=== PATIENT | male | born 1980 | race Hispanic/Latino ===

== ENCOUNTER 2019-04-08 11:05 | Observation (INO) | payer OTHER ==
--- NOTE | 2019-04-08 11:26 | Emergency Department Report ---
Chief Complaint: Skin Rash Stated Complaint: BOIL BETWEEN LEGS - HPI History of Present Illness: 38yo WM states that he has a painful skin boil with swelling and bleeding x 6 days. - Exam Vital Signs: Vital Signs 04/08/19 11:11 Temperature 98.3 F Pulse Rate 135 H Respiratory 18 Rate Blood Pressure 188/112 O2 Sat by Pulse 96 Oximetry MSE screening note: Focused history and physical exam performed. Due to findings the following was ordered: ED Disposition for MSE Condition: Stable
[2019-04-08] MEDS ORDERED: SODIUM CHLORIDE 0.9% 1000 ML 1,000 ML IV ONE ×2 (11:50→17:27)
[2019-04-08] MEDS ORDERED: KETOROLAC 30 MG/1 ML INJ IV ONE (11:50)
[2019-04-08] MEDS ORDERED: MORPHINE 4 MG/1 ML INJ IV ONE (11:50)
[2019-04-08] MEDS ORDERED: VANCOMYCIN PHARMACY TO DOSE IV SCH (12:00)
[2019-04-08 12:24] LABS: Basophils # (Auto) 0.1 K/mm3 (0.0-0.1); Basophils % (Auto) 0.8 % (0.0-1.8); Eosinophils # (Auto) 0.1 K/mm3 (0.0-0.4); Eosinophils % (Auto) 0.9 % (0.0-4.3); Lymphocytes # (Auto) 1.8 K/mm3 (1.2-5.4); Lymphocytes % (Auto) 17.2 % (13.4-35.0); Mean Corpuscular HGB Conc 36 % (32-34); Mean Corpuscular Volume 92 fl (84-94); Monocytes # (Auto) 0.9 K/mm3 (0.0-0.8); Monocytes % (Auto) 8.5 % (0.0-7.3); Platelet Count 254 K/mm3 (140-440); Red Blood Count 4.67 M/mm3 (3.65-5.03); Red Cell Distribution Width 13.1 % (13.2-15.2)
[2019-04-08 12:27] LABS: Hemoglobin 15.3 gm/dl (11.8-15.2)
[2019-04-08 12:50] LABS: Bacteria,Urine 1+ /HPF (Negative); Bilirubin,Urine NEG (Negative); Blood,Urine NEG (Negative); Color,Urine Yellow (Yellow); Mucus,Urine FEW /HPF; Urobilinogen,Urine < 2.0 mg/dL (<2.0)
[2019-04-08 12:50] LABS: Alanine Aminotransferase 19 units/L (7-56); Albumin 3.8 g/dL (3.9-5); BUN/Creatinine Ratio 13; Blood Urea Nitrogen 8 mg/dL (9-20); Calcium 9.1 mg/dL (8.4-10.2); Hemolysis Index 1
[2019-04-08] MEDS ORDERED: VANCOMYCIN 2,000 MG in SODIUM CHLORIDE 0.9% 500 ML 500 ML IV ONE (13:00)
--- NOTE | 2019-04-08 15:07 | Cat Scan Report ---
CT abdomen and pelvis with contrast INDICATION / CLINICAL INFORMATION: large abscess in perineum. Patient states cut by a chair last week , became hard, now draining since Thursday. TECHNIQUE: Abdomen and pelvis CT performed following IV contrast only. Axial, sagittal and coronal CT reconstructions obtained. All CT scans at this location are performed using CT dose reduction for AL LAURIE by means of automated exposure control. COMPARISON: None available. FINDINGS: LUNG BASES: No significant abnormality. ABDOMEN: Mild diffuse fatty hepatic infiltration. Right hepatic lobe 20.7 cm in midclavicular length. Splenic length 14.6 cm. Otherwise grossly unremarkable liver, spleen, gallbladder, pancreas, adrenal s, aorta, IVC and kidneys. No ascites or size significant adenopathy with few small, subcentimeter me senteric and retroperitoneal lymph nodes. Nonopacified GI tract evaluation limited, though grossly no nobstructive. Normal appendix. No significant colonic stool burden. PELVIS: Slight seminal vesicle calcifications. Grossly unremarkable prostate and nonopacified rectosi gmoid and the urinary bladder. No free fluid or size significant adenopathy. Few bilateral inguinal l ymph nodes as measuring up to 2.4 x 1.4 cm on the right. Fat-containing bilateral inguinal hernias di ameters approximately 2.5-3 cm as on axial image 685, series 3, amongst others. Subtle stranding/lupis ration about the left inguinal skin fold incidentally noted as on axial image 692. Lower gluteal soft tissues also demonstrate moderate superficial induration/skin thickening, greatest about the midline posteriorly and left more than right with some inflammatory stranding also extending into the perine um as on axial images [id number]. No radiopaque foreign body identified in the areas seen. Mild degenerative spurring at few spinal levels. Mild bilateral hip degenerative changes/acetabular p rominence/spurring as well, left greater than right. Bilateral L5 pars defects incidentally noted. IMPRESSION: 1. Lower gluteal superficial induration/cellulitis incompletely imaged, as detailed above. 2. Smaller similar process at the left groin also suspected without deeper fluid collection or absces s. 3. No other acute CT abnormality with various other incidental findings, including fatty enlarged royal er, mild splenomegaly and bilateral L5 pars defects, amongst others, as above. Thank you for the opportunity to participate in this patient's care. Signer Name: Bella Coe Signed: 04/08/2019 3:03 PM Workstation Name: [id number]
--- NOTE | 2019-04-08 16:53 | Cat Scan Report ---
CT pelvis wo con INDICATION: perinium swelling (extend down though mid thigh). TECHNIQUE: All CT scans at this location are performed using the following dose modulation technique: Automated exposure control. CONTRAST: None. COMPARISON: CT abdomen and pelvis earlier the same day. FINDINGS: Prominent soft tissue inflammation with associated skin thickening is seen at the posterior and inferior gluteal region left greater than right extension into the perineum. No localized fluid collection or soft tissue gas is present. More localized similar findings are seen at the left groin anteriorly. IMPRESSION: Soft tissue thickening/inflammation greatest at the left gluteal region. No fluid collect ion identified. Signer Name: Sanket Romo MD Signed: 04/08/2019 4:48 PM Workstation Name: [id number]
--- NOTE | 2019-04-08 17:29 | Emergency Department Report ---
ED General Adult HPI - General Chief complaint: Skin Rash Stated complaint: BOIL BETWEEN LEGS Time Seen by Provider: 04/08/19 11:36 Source: patient Mode of arrival: Ambulatory Limitations: No Limitations - History of Present Illness Initial comments: Patient is a 38-year-old male who states he has an infection in between his legs. Patient states approximately a week ago he sat on a chair and developed a cut on his mid buttock. Patient states that he is now having progressively worsening swelling. Patient states for the past 4 days he's had some drainage of bloody purulent material from the area of swelling. Patient says subjective fevers. Pain is 10 out of 10 severity is worse when he walks. Severity scale (0 -10): 0 - Related Data Allergies Allergy/AdvReac Type Severity Reaction Status Date / Time No Known Allergies Allergy Unverified 04/08/19 12:01 ED Review of Systems ROS: Stated complaint: BOIL BETWEEN LEGS Other details as noted in HPI Comment: All other systems reviewed and negative ED Past Medical Hx - Past Medical History Previous Medical History?: No - Surgical History Past Surgical History?: Yes Additional Surgical History: ortho surgery left arm as a child. - Social History Smoking Status: Never Smoker Substance Use Type: None ED Physical Exam - General Limitations: No Limitations General appearance: alert, in no apparent distress - Head Head exam: Present: atraumatic, normocephalic - Eye Eye exam: Present: normal appearance, PERRL, EOMI - ENT ENT exam: Present: mucous membranes moist - Neck Neck exam: Present: normal inspection - Respiratory Respiratory exam: Present: normal lung sounds bilaterally. Absent: respiratory distress, wheezes, rales, rhonchi - Cardiovascular Cardiovascular Exam: Present: normal rhythm, tachycardia, normal heart sounds. Absent: systolic murmur, diastolic murmur, rubs, gallop - GI/Abdominal GI/Abdominal exam: Present: soft, normal bowel sounds. Absent: distended, tende rness, guarding, rebound - Rectal Rectal exam: Present: deferred - External exam: Present: other (patient's has a large amount of swelling the peritoneum. Area is firm and swollen. Swelling is at the scrotum. There is 2 small areas that are actively draining purulent and bloody fluid. There is no obvious fluctuant areas.) - Extremities Exam Extremities exam: Present: normal inspection - Back Exam Back exam: Present: normal inspection - Neurological Exam Neurological exam: Present: alert, oriented X3 - Psychiatric Psychiatric exam: Present: normal affect, normal mood - Skin Skin exam: Present: warm, dry, intact, normal color. Absent: rash ED Course Vital Signs 04/08/19 04/08/19 11:11 12:17 Temperature 98.3 F Pulse Rate 135 H Respiratory 18 18 Rate Blood Pressure 188/112 O2 Sat by Pulse 96 Oximetry ED Medical Decision Making - Lab Data Result diagrams: 04/08/19 12:03 04/08/19 12:03 - Radiology Data Ordering Physician: ELIEZER SCHMID MD Date of Service: 04/08/19 Procedure(s): CT abdomen pelvis w con Accession Number(s): [id number] cc: ELIEZER SCHMID MD CT abdomen and pelvis with contrast INDICATION / CLINICAL INFORMATION: large abscess in perineum. Patient states cut by a chair last week, became hard, now draining since Thursday. TECHNIQUE: Abdomen and pelvis CT performed following IV contrast only. Axial, sagittal and coronal CT reconstructions obtained. All CT scans at this location are performed using CT dose reduction for ALARA by means of automated exposure control. COMPARISON: None available. FINDINGS: LUNG BASES: No significant abnormality. ABDOMEN: Mild diffuse fatty hepatic infiltration. Right hepatic lobe 20.7 cm in midclavicular length. Splenic length 14.6 cm. Otherwise grossly unremarkable liver, spleen, gallbladder, pancreas, adrenals, aorta, IVC and kidneys. No ascites or size significant adenopathy with few small, subcentimeter mesenteric and retroperitoneal lymph nodes. Nonopacified GI tract evaluation limited, though grossly nonobstructive. Normal appendix. No significant colonic stool burden. PELVIS: Slight seminal vesicle calcifications. Grossly unremarkable prostate and nonopacified rectosigmoid and the urinary bladder. No free fluid or size significant adenopathy. Few bilateral inguinal lymph nodes as measuring up to 2.4 x 1.4 cm on the right. Fat- containing bilateral inguinal hernias diameters approximately 2.5-3 cm as on axial image 685, series 3, amongst others. Subtle stranding/induration about the left inguinal skin fold incidentally noted as on axial image 692. Lower gluteal soft tissues also demonstrate moderate superficial induration/skin thickening, greatest about the midline posteriorly and left more than right with some inflammatory stranding also extending into the perineum as on axial images 690-792. No radiopaque foreign body identified in the areas seen. Mild degenerative spurring at few spinal levels. Mild bilateral hip degenerative changes/acetabular prominence/spurring as well, left greater than right. Bilateral L5 pars defects incidentally noted. IMPRESSION: 1. Lower gluteal superficial induration/cellulitis incompletely imaged, as detailed above. 2. Smaller similar process at the left groin also suspected without deeper fluid collection or abscess. 3. No other acute CT abnormality with various other incidental findings, inc luding fatty enlarged liver, mild splenomegaly and bilateral L5 pars defects, amongst others, as abo ve. Thank you for the opportunity to participate in this patient's care. Signer Name: Jimmiemary Coe Signed: 04/08/2019 3:03 PM Workstation Name: [id number] Additional films were taken extending further down into the pelvis. Dr. Low general surgeon and myself looked at the films and it does not appear to be a large discrete abscess present. Most of this area does appear to be cellulitic - Medical Decision Making Patient is a 38-year-old male who is presenting with swelling in his perineum. There is no subcutaneous gas present however the area of cellulitis is quite extensive. Patient be admitted to the hospital for IV antibiotics. Critical care attestation.: If time is entered above; I have spent that time in minutes in the direct care of this critically ill patient, excluding procedure time. ED Disposition Clinical Impression: Hyperglycemia, Cellulitis of perineum Disposition: OP ADMIT IP TO THIS HOSP Is pt being admited?: Yes Does the pt Need Aspirin: No Condition: Stable Time of Disposition: 17:29
[2019-04-08] MEDS ORDERED: ONDANSETRON 4 MG/2 ML INJ IV PRN (17:33)
[2019-04-08] MEDS ORDERED: ACETAMINOPHEN 325 MG TAB PO PRN (17:33)
[2019-04-08] MEDS ORDERED: ALBUTEROL 2.5 MG/3 ML NEBU IH PRN (17:33)
--- NOTE | 2019-04-08 17:35 | History and Physical Report ---
History of Present Illness Chief complaint: I have a rash History of present illness: 38 YO Male with DM, Obesity presents to ED for evaluation. Pt states that he has experienced redness, and swelling to his buttock over the past 1 week. Pt states that he sustained a cut on his buttock 1 week ago after he sat on a chair. Pt has developed redness and swelling with worsening symptoms over the past 4 days. Pt reports purulent and foul smelling discharge. Pt transported to [facility] via private vehicle. Pt seen and evaluated in ED and found to have Cellulitis to the Perineum. Surgery team consulted in ED. Pt placed in Observation Status and admitted to Medical floor. Pt initiated on IV antibiotic therapy. No prior admis fei for review. No medication listed for reconciliation at time of admission. Past History Past Medical History: other (see hpi) Past Surgical History: No surgical history, Other (reviewed) Social history: single Family history: diabetes, hypertension Medications and Allergies Allergies Allergy/AdvReac Type Severity Reaction Status Date / Time No Known Allergies Allergy Unverified 04/08/19 12:01 Active Meds: Active Medications Acetaminophen (Tylenol) 650 mg PO Q4H PRN PRN Reason: Pain MILD(1-3)/Fever >100.5/BROOKS Albuterol (Proventil) 2.5 mg IH Q4HRT PRN PRN Reason: Shortness Of Breath Vancomycin HCl 2,000 mg/ (Sodium Chloride) 540 mls @ 250 mls/hr IV Q8H IZABELA Sodium Chloride (Nacl 0.9% 1000 Ml) 1,000 mls @ 999 mls/hr IV BOLUS ONE Stop: 04/08/19 18:27 Ondansetron HCl (Zofran) 4 mg IV Q8H PRN PRN Reason: Nausea And Vomiting Sodium Chloride (Sodium Chloride Flush Syringe 10 Ml) 10 ml IV BID IZABELA Sodium Chloride (Sodium Chloride Flush Syringe 10 Ml) 10 ml IV PRN PRN PRN Reason: LINE FLUSH Review of Systems Constitutional: no weight loss, no weight gain, no fever, no chills Ears, nose, mouth and throat: no ear pain, no ear discharge, no tinnitis, no decreased hearing, no nasal congestion Cardiovascular: no chest pain, no orthopnea, no palpitations, no rapid/irregular heart beat, no syncope, no lightheadedness Respiratory: no cough, no cough with sputum, no hemoptysis, no shortness of breath Gastrointestinal: no abdominal pain, no nausea, no diarrhea, no constipation, no hematemesis Genitourinary Male: no hematuria, no flank pain, no discharge, no urinary frequency, no urinary hesitancy, no nocturia, no incontinence Rectal: no pain, no incontinence, no bleeding Musculoskeletal: no neck stiffness, no neck pain, no shooting arm pain, no arm numbness/tingling, no low back pain Integumentary: redness, no bullae, no lesions, no depigmentation, no dryness Neurological: no transient paralysis, no weakness, no seizures, no tremors, no ataxia Psychiatric: no anxiety, no change in sleep habits, no sleep disturbances, no hypersomnia, no change in appetite, no suicidal ideation Endocrine: no cold intolerance, no heat intolerance, no excessive thirst, no polyuria, no nocturia Hematologic/Lymphatic: no easy bruising, no easy bleeding, no lymphadenopathy, no lymphedema Allergic/Immunologic: no urticaria, no wheezing, no persistent infections, no anaphylaxis Exam - Constitutional Vitals: Temp Pulse Resp BP Pulse Ox 98.3 F 135 H 18 188/112 96 04/08/19 11:11 04/08/19 11:11 04/08/19 12:17 04/08/19 11:11 04/08/19 11:11 General appearance: Present: mild distress - EENT Eyes: Present: PERRL ENT: hearing intact, clear oral mucosa - Neck Neck: Present: supple, normal ROM - Respiratory Respiratory effort: normal Respiratory: bilateral: CTA - Cardiovascular Heart Sounds: Present: S1 & S2. Absent: rub, click - Extremities Extremities: pulses symmetrical, No edema Peripheral Pulses: within normal limits - Abdominal General gastrointestinal: Present: soft, non-tender, non-distended, normal bowel sounds Male genitourinary: Present: normal - Rectal Rectal Exam: other (gludeal erythema, induration) - Integumentary Integumentary: Present: clear, warm, dry - Musculoskeletal Musculoskeletal: gait normal, strength equal bilaterally - Psychiatric Psychiatric: appropriate mood/affect, intact judgment & insight - Neurologic Neurologic: CNII-XII intact, moves all extremities Results - Labs CBC & Chem 7: 04/08/19 12:03 04/08/19 12:03 Labs: Abnormal lab results 04/08/19 04/08/19 04/08/19 Range/Units 12:03 12:03 Unknown Hgb 15.3 H (11.8-15.2) gm/dl MCH 33 H (28-32) pg MCHC 36 H (32-34) % RDW 13.1 L (13.2-15.2) % [place] % (Auto) 8.5 H (0.0-7.3) % [place] # 0.9 H (0.0-0.8) K/mm3 Seg Neutrophils % 72.6 H (40.0-70.0) % Sodium 136 L (137-145) mmol/L Chloride 96.2 L (98-107) mmol/L BUN 8 L (9-20) mg/dL Creatinine 0.6 L (0.8-1.5) mg/dL Glucose 316 H (75-100) mg/dL Total Protein 8.4 H (6.3-8.2) g/dL Albumin 3.8 L (3.9-5) g/dL Ur Specific [place] 1.042 H (1.003-1.030) Assessment and Plan - Patient Problems (1) Cellulitis of perineum Current Visit: Yes Status: Acute Plan to address problem: IV antibiotic therapy, CT abdomen/pelvis, IVF resuscitation therapy, CBC, CMP, surgery consulted. (2) Diabetes Current Visit: Yes Status: Acute Plan to address problem: ADA diet, insulin, accu check, hypoglycemia protocol (3) Obesity hypoventilation syndrome Current Visit: Yes Status: Acute Plan to address problem: supplemental oxygen, nebulizer therapy, NIPPV as clinically indicated., pulse oximetry (4) DVT prophylaxis Current Visit: Yes Status: Acute Plan to address problem: SCD to BLE while in bed, Pt ambulatory
[2019-04-08] MEDS ORDERED: DEXTROSE 50% IN WATER (25GM) 50 ML SYRINGE IV PRN (17:37)
[2019-04-08] MEDS ORDERED: hydrALAZINE 20 MG/1 ML INJ IV ONE (22:24)
[2019-04-09] MEDS: INSULIN LISPRO 100 UNIT/ML SUB-Q SCH ×4 (00:06→12:54)
[2019-04-09] MEDS: VANCOMYCIN 2,000 MG in SODIUM CHLORIDE 0.9% 500 ML 500 ML IV SCH ×2 (01:12→10:17)
[2019-04-09] MEDS ORDERED: cloNIDine 0.1 MG TAB PO ONE (01:42)
[2019-04-09 05:08] VITALS: BP 158/98
[2019-04-09] MEDS ORDERED: hydroCHLOROthiazide 12.5 MG CAP PO SCH (10:00)
--- NOTE | 2019-04-09 11:14 | Consultation ---
History of Present Illness Consult date: 04/09/19 Requesting physician: ELIEZER SCHMID Chief complaint: left buttock infection - History of present illness History of present illness: 38yo obese M recently diagnoses with DM and HTN presents with 1 week history of pain, swelling, and drainage from left buttock area after cutting that area on a chair. Denies F/C/N/V. Main issue was severe pain and drainage. Pt had a significant amount of drainage last night. He feels much better this morning. The pain is much improved. He can now stand up without much difficulty. Drainage has slowed down. The drainage was pink/yellow and thin. Past History Past Medical History: other (see hpi) Past Surgical History: No surgical history, Other (reviewed) Social history: single Family history: diabetes, hypertension Medications and Allergies Allergies Allergy/AdvReac Type Severity Reaction Status Date / Time No Known Allergies Allergy Unverified 04/08/19 12:01 Home Medications Medication Instructions Recorded Confirmed Last Taken Type No Known Home Medications [No 04/09/19 04/09/19 Unknown History Reported Home Medications] Active Meds: Active Medications Acetaminophen (Tylenol) 650 mg PO Q4H PRN PRN Reason: Pain MILD(1-3)/Fever >100.5/BROOKS Albuterol (Proventil) 2.5 mg IH Q4HRT PRN PRN Reason: Shortness Of Breath Dextrose (D50w (25gm) Syringe) 50 ml IV Q30MIN PRN PRN Reason: Hypoglycemia Hydrochlorothiazide (Hctz) 12.5 mg PO QDAY [facility] Last Admin: 04/09/19 10:15 Dose: 12.5 mg Documented by: Vancomycin HCl 2,000 mg/ (Sodium Chloride) 540 mls @ 250 mls/hr IV Q8H [facility] Last Admin: 04/09/19 10:17 Dose: 250 mls/hr Documented by: Insulin Human Lispro (Humalog) 0 unit SUB-Q Q6HR [facility]; Protocol Last Admin: 04/09/19 07:53 Dose: 4 unit Documented by: Ondansetron HCl (Zofran) 4 mg IV Q8H PRN PRN Reason: Nausea And Vomiting Sodium Chloride (Sodium Chloride Flush Syringe 10 Ml) 10 ml IV BID [facility] Last Admin: 04/09/19 10:17 Dose: 10 ml Documented by: Sodium Chloride (Sodium Chloride Flush Syringe 10 Ml) 10 ml IV PRN PRN PRN Reason: LINE FLUSH Last Admin: 04/09/19 01:12 Dose: 10 ml Documented by: Review of Systems - Constitutional no fever, no chills, no chronic pain - Cardiovascular no chest pain, no shortness of breath - Gastrointestinal no abdominal pain, no nausea, no vomiting - Integumentary boils Exam Vital Signs Temp Pulse Resp BP Pulse Ox 98.3 F 135 H 18 188/112 96 04/08/19 11:11 04/08/19 11:11 04/08/19 11:11 04/08/19 11:11 04/08/19 11:11 - General physical appearance Positive: no distress, no pain, obese, other (very pleasant) - Eyes Positive: normal occular movement - Respiratory Positive: normal expansion, normal respiratory effort - Integumentary other (abnormal discoloration noted in the perineum and extending down the left thigh - nontender. 2x5cm area of fluctuance that is superficial on left buttock with small amount of purulent drainage. Nontender. scrotum nontender. No extending erythema. ) - Neurologic Neurologic: alert and oriented to time, place and person, motor strength and sensation are grossly intact - Psychiatric Psychiatric: appropriate mood/affect, intact judgment & insight, cooperative Results - Labs 04/08/19 12:03 04/08/19 12:03 Abnormal lab results 04/08/19 04/08/19 04/08/19 Range/Units 12:03 12:03 Unknown Hgb 15.3 H (11.8-15.2) gm/dl MCH 33 H (28-32) pg MCHC 36 H (32-34) % RDW 13.1 L (13.2-15.2) % [place] % (Auto) 8.5 H (0.0-7.3) % [place] # 0.9 H (0.0-0.8) K/mm3 Seg Neutrophils % 72.6 H (40.0-70.0) % Sodium 136 L (137-145) mmol/L Chloride 96.2 L (98-107) mmol/L BUN 8 L (9-20) mg/dL Creatinine 0.6 L (0.8-1.5) mg/dL Glucose 316 H (75-100) mg/dL POC Glucose (70-105) Total Protein 8.4 H (6.3-8.2) g/dL Albumin 3.8 L (3.9-5) g/dL Ur Specific [place] 1.042 H (1.003-1.030) 04/09/19 04/09/19 Range/Units 00:01 05:14 Hgb (11.8-15.2) gm/dl MCH (28-32) pg MCHC (32-34) % RDW (13.2-15.2) % [place] % (Auto) (0.0-7.3) % [place] # (0.0-0.8) K/mm3 Seg Neutrophils % (40.0-70.0) % Sodium (137-145) mmol/L Chloride (98-107) mmol/L BUN (9-20) mg/dL Creatinine (0.8-1.5) mg/dL Glucose (75-100) mg/dL POC Glucose 249 H 211 H (70-105) Total Protein (6.3-8.2) g/dL Albumin (3.9-5) g/dL Ur Specific [place] (1.003-1.030) Diabetes panel 04/08/19 Range/Units 12:03 Sodium 136 L (137-145) mmol/L Potassium 3.9 (3.6-5.0) mmol/L Chloride 96.2 L (98-107) mmol/L Carbon Dioxide 23 (22-30) mmol/L BUN 8 L (9-20) mg/dL Creatinine 0.6 L (0.8-1.5) mg/dL Glucose 316 H (75-100) mg/dL Calcium 9.1 (8.4-10.2) mg/dL AST 19 (5-40) units/L ALT 19 (7-56) units/L Alkaline Phosphatase 74 (35-129) units/L Total Protein 8.4 H (6.3-8.2) g/dL Albumin 3.8 L (3.9-5) g/dL Calcium panel 04/08/19 Range/Units 12:03 Calcium 9.1 (8.4-10.2) mg/dL Albumin 3.8 L (3.9-5) g/dL Pituitary panel 04/08/19 Range/Units 12:03 Sodium 136 L (137-145) mmol/L Potassium 3.9 (3.6-5.0) mmol/L Chloride 96.2 L (98-107) mmol/L Carbon Dioxide 23 (22-30) mmol/L BUN 8 L (9-20) mg/dL Creatinine 0.6 L (0.8-1.5) mg/dL Glucose 316 H (75-100) mg/dL Calcium 9.1 (8.4-10.2) mg/dL Adrenal panel 04/08/19 Range/Units 12:03 Sodium 136 L (137-145) mmol/L Potassium 3.9 (3.6-5.0) mmol/L Chloride 96.2 L (98-107) mmol/L Carbon Dioxide 23 (22-30) mmol/L BUN 8 L (9-20) mg/dL Creatinine 0.6 L (0.8-1.5) mg/dL Glucose 316 H (75-100) mg/dL Calcium 9.1 (8.4-10.2) mg/dL Total Bilirubin 0.60 (0.1-1.2) mg/dL AST 19 (5-40) units/L ALT 19 (7-56) units/L Alkaline Phosphatase 74 (35-129) units/L Total Protein 8.4 H (6.3-8.2) g/dL Albumin 3.8 L (3.9-5) g/dL - Imaging CT scan - pelvis: report reviewed, image reviewed Assessment and Plan - Patient Problems (1) Cellulitis of perineum Current Visit: Yes Status: Acute Plan to address problem: Pt stable. Feeling much better. Drained a lot of pink/yellow fluid yesterday. Pain is minimal. Appears to have a small abscess in the left buttock that is actively draining. Discussed options of bedside I&D, OR I&D, or short term f/u in clinic. Discussed pros/cons of each option. As patient is feeling much better, he elected to have short term f/u in the office. If discharged tod ay/tomorrow, would like to see him in the office this week. Would recommend oral abx at discharge for 1 week. Please call with questions. Time=30min
--- NOTE | 2019-04-09 14:55 | Discharge Summary ---
Providers - Providers Date of Admission: 04/08/19 17:33 Date of discharge: 04/09/19 Attending physician: VIKAS MAKI 04/08/19 17:36 Consult to Physician [CONS] Routine Comment: Consulting Provider: LARRY WEBSTER Physician Instructions: Reason For Exam: perineum cellulitis 04/09/19 03:35 Consult to Wound/ET Nurse [CONS] Routine Reason For Exam: wound eval Primary care physician: COMBINATION TECHNICIAN Hospitalization Condition: Stable Hospital course: Discharge diagnosis: (1) Cellulitis of perineum (2) morbid obesity Disposition: DC-01 TO HOME OR SELFCARE Time spent for discharge: 34 minutes Core Measure Documentation - Palliative Care Palliative Care/ Comfort Measures: Not Applicable - Core Measures Any of the following diagnoses?: none Exam - Constitutional Vitals: Temp Pulse Resp BP Pulse Ox 98.2 F 109 H 20 158/98 96 04/09/19 05:06 04/09/19 05:06 04/09/19 05:06 04/09/19 05:06 04/09/19 05:06 General appearance: Present: no acute distress, well-nourished - EENT Eyes: Present: PERRL ENT: hearing intact, clear oral mucosa - Neck Neck: Present: supple, normal ROM - Respiratory Respiratory effort: normal Respiratory: bilateral: CTA - Cardiovascular Heart Sounds: Present: S1 & S2. Absent: rub, click - Extremities Extremities: pulses symmetrical, No edema Peripheral Pulses: within normal limits - Abdominal General gastrointestinal: Present: soft, non-tender, non-distended, normal bowel sounds - Integumentary Integumentary: Present: clear, warm, dry - Musculoskeletal Musculoskeletal: gait normal, strength equal bilaterally - Psychiatric Psychiatric: appropriate mood/affect, intact judgment & insight - Neurologic Neurologic: CNII-XII intact, moves all extremities Plan Activity: advance as tolerated Weight Bearing Status: Weight Bear as Tolerated Diet: low fat, low salt Wound: per your surgeon's advice Follow up with: JOSE ALBERTO SINGH MD [Primary Care Provider] - 7 Days LARRY WEBSTER MD [Staff Physician] - 7 Days Prescriptions: Clindamycin [Clindamycin CAP] 600 mg PO BID #10 capsule
== END 2019-04-09 16:00 | disposition home or self-care (01) ==
LOC: ED 11:05 → 3A 17:33
PROVIDERS: ADMIT Internal Medicine; ATTEND Internal Medicine
DX: L03.315 Cellulitis of perineum (principal); E11.65 Type 2 diabetes mellitus with hyperglycemia; E66.2 Morbid (severe) obesity with alveolar hypoventilation; Z68.42 Body mass index [BMI] 45.0-49.9, adult
CPT/HCPCS: 36415; 72192; 74177; 80053; 81001; 82140; 82962; 85025; 86689; 87040; 96365; 96366; 96372; 96375; 99284; G0378; J0360; J1885; J2270; J3370; J7030; J7040; Q9967; J1815